=== PATIENT | male | born 1980 | race Caucasian/White ===

== ENCOUNTER 2023-09-07 17:11 | Emergency (ER) | payer SELFPAY ==
[~2023-09-07] VITALS: Ht 170.2 cm; Wt 59.0 kg
[2023-09-07 17:43] VITALS: BP 115/80; PULSE 110; RESP 20; TEMP 97; O2SAT 98
[2023-09-07] MEDS ORDERED: KETOROLAC 30 MG/ML VIAL IM ONE (18:50)
[2023-09-07] MEDS ORDERED: HYDROcodone/APAP 5/325 MG 1 TAB TAB PO ONE (18:50)
[2023-09-07] MEDS ORDERED: LID5T TP (20:25)
[2023-09-07] MEDS ORDERED: NAPR-54 PO (20:25)
[2023-09-07] MEDS ORDERED: CYCL-711 PO (20:25)
== END 2023-09-07 21:46 | disposition home or self-care (01) ==
LOC: MED 17:11
DX: S39.012A Strain of muscle, fascia and tendon of lower back, initial encounter (principal); W18.30XA Fall on same level, unspecified, initial encounter; Y93.51 Activity, roller skating (inline) and skateboarding; Y92.89 Other specified places as the place of occurrence of the external cause; Y99.8 Other external cause status
CPT/HCPCS: 72100; 72220; 96372; 99284; J1885